=== PATIENT | male | born 1980 | race Caucasian/White ===

== ENCOUNTER 2025-07-23 16:24 | Emergency (ER) | payer OTHER ==
[~2025-07-23] VITALS: Ht 188 cm; Wt 100.0 kg
[2025-07-23 16:29] VITALS: TEMP 98.2
[2025-07-23] MEDS ORDERED: GABA-1201 PO (17:02)
[2025-07-23 21:02] VITALS: BP 135/79; PULSE 78; RESP 18; O2SAT 100
== END 2025-07-23 21:10 ==
LOC: EMS 16:24
DX: S90.121A Contusion of right lesser toe(s) without damage to nail, initial encounter (principal); B35.1 Tinea unguium; G89.29 Other chronic pain; Z87.891 Personal history of nicotine dependence; Z79.899 Other long term (current) drug therapy; X58.XXXA Exposure to other specified factors, initial encounter; Y93.89 Activity, other specified; Y92.89 Other specified places as the place of occurrence of the external cause; Y99.8 Other external cause status
CPT/HCPCS: 99283

== ENCOUNTER 2025-10-25 18:58 | Emergency (ER) | payer OTHER ==
[~2025-10-25] VITALS: Ht 185.4 cm; Wt 114.5 kg
[~2025-10-25 18:58] MED LIST: GABA-1201 PO
[2025-10-25 19:05] VITALS: TEMP 98.6
[2025-10-25] MEDS: LIDOCAINE 1% 10 ML VIAL SQ ONE (20:31)
[2025-10-25] MEDS: IBUPROFEN 600 MG TABLET PO ONE (20:32)
[2025-10-25] MEDS: BACITRACIN 0.9 GM PACKET OINTMENT TP ONE (20:32)
[2025-10-25] MEDS: ACETAMINOPHEN 500 MG TABLET PO ONE (20:32)
[2025-10-25] MEDS: PERTUSS(ACELL),DIPH,TET/PF 0.5 ML SYRINGE [ADULT] IM. ONE (20:33)
[2025-10-25 20:50] LABS: PLATELET COUNT (AUTO) 235 K/uL (150-450); RED BLOOD CELL COUNT(AUTO) 4.52 MIL/uL (4.50-5.90); RED CELL DISTRIBUTION WIDTH 13.7 % (11.5-14.5); WHITE BLOOD COUNT (AUTO) 11.6 K/uL (4.5-11.0)
[2025-10-25 21:00] VITALS: BP 125/95; PULSE 82; RESP 17; O2SAT 100
[2025-10-25 21:05] LABS: CALCIUM, TOTAL 9.3 mg/dL (8.8-10.5); CREATININE 1.02 mg/dL (0.60-1.30); GLOMERULAR FILTR. RATE CALC > 60 mL/min (>60); GLUCOSE,RANDOM 105 mg/dL (70-110); SODIUM SERUM 140 mmol/L (136-145); UREA NITROGEN, BLOOD 20 mg/dL (7-18)
[2025-10-25] MEDS: GABAPENTIN 300 MG CAPSULE PO ONE (21:36)
== END 2025-10-25 22:00 ==
LOC: EMS 19:05
DX: S02.2XXA Fracture of nasal bones, initial encounter for closed fracture (principal); S01.81XA Laceration without foreign body of other part of head, initial encounter; G89.29 Other chronic pain; Z87.891 Personal history of nicotine dependence; Z79.899 Other long term (current) drug therapy; W01.0XXA Fall on same level from slipping, tripping and stumbling without subsequent striking against object, initial encounter; Y93.89 Activity, other specified; Y92.89 Other specified places as the place of occurrence of the external cause; Y99.8 Other external cause status
CPT/HCPCS: 99285; 70450; 80048; 85025; 36415; 70486; 90715; 90471; 12015; J3490